=== PATIENT | female | born 1935 | race Caucasian/White ===

== ENCOUNTER 2019-06-27 12:49 | Emergency (ER) | payer MEDICARE ==
[~2019-06-27] VITALS: Ht 177.8 cm; Wt 68.2 kg
--- NOTE | 2019-06-27 14:46 | PHYS DOC ---
Past Medical History Past Medical History: Hypertension, Kidney Stone, PA, Other Additional Past Medical Histor: KIDNEY DISEASE Past Surgical History: , Other Additional Past Surgical Histo: 'SURGERY FOR KIDNEY STONE',HERNIA Alcohol Use: None Adult General Chief Complaint Chief Complaint: HEADACHE HPI HPI Patient is a 84 year old female who presents with states Thursday and heaviness pain that comes and goes up the back of her skull and shoots to the right ear. States it feels like electrical shock. She rates her pain a 10 out of 10 when the pain hits. Review of Systems Review of Systems Neurologic: headache, denies focal weakness or sensory changes [] All other systems were reviewed and found to be within normal limits, except as documented in this note. Allergies Allergies Allergies Uncoded Allergies Type Severity Reaction Last Updated Verified TPA Adverse Reaction Severe 06/27/19 Physical Exam Physical Exam Constitutional: Well developed, well nourished, no acute distress, non-toxic appearance. [] HENT: Normocephalic, atraumatic, bilateral external ears normal, oropharynx moist, no oral exudates, nose normal. [] Eyes: PERRLA, EOMI, conjunctiva normal, no discharge. [] Neck: Normal range of motion, no tenderness, supple, no stridor. [] Cardiovascular:Heart rate regular rhythm, no murmur [] Lungs & Thorax: Bilateral breath sounds clear to auscultation [] Abdomen: Bowel sounds normal, soft, no tenderness, no masses, no pulsatile masses. [] Skin: Warm, dry, no erythema, no rash. [] Back: No tenderness, no CVA tenderness. [] Extremities: No tenderness, no cyanosis, no clubbing, ROM intact, no edema. [] Neurologic: Alert and oriented X 3, normal motor function, normal sensory function, no focal deficits noted. [] Psychologic: Affect normal, judgement normal, mood normal. Normal physical exam[] Current Patient Data Vital Signs Vital Signs Date Time Temp Pulse Resp B/P (MAP) Pulse Ox O2 Delivery O2 Flow Rate FiO2 06/27/19 13:10 98.0 68 17 172/94 (120) 98 Room Air 98.0 EKG EKG [] Radiology/Procedures Radiology/Procedures [] Impressions: [facility] [address] [place] [address] IMAGING REPORT Signed PATIENT: MAGEN SPENCE ACCOUNT: [id number] : 1935 LOCATION: ER AGE: 84 SEX: F EXAM STATUS: REG ER ORD. PHYSICIAN: BRISEIDA BASS APRN REASON: BACK OF HEAD, NECK PAIN SINCE THURSDAY, FREQUENT FALLS PROCEDURE: CT HEAD AND CERVICAL SPINE WO STUDY: CT head and cervical spine without contrast INDICATION: Frequent falls. Back of head and neck pain. COMPARISON: None. TECHNIQUE: Axial CT imaging through the head and cervical spine without the use of intravenous contrast. Sagittal and coronal reformats were obtained. One or more of the following individualized dose reduction techniques were utilized for this examination: 1. Automated exposure control 2. Adjustment of the mA and/or kV according to patient size 3. Use of iterative reconstruction technique. FINDINGS: CT head: No acute intracranial hemorrhage. No mass effect, midline shift or hydrocephalus. No CT evidence for an acute cortical infarction. Parenchymal volume loss. Intracranial atherosclerotic calcifications. Intact calvarium. Mild sphenoid sinus mucosal thickening/frothy secretions. Unremarkable mastoid air cells. CT cervical spine: Osteopenia. No acute fracture or traumatic malalignment. Grade 1 anterolisthesis of C5 on C6. No advanced disc space collapse. Multilevel and multifactorial degenerative changes without bony central canal encroachment. No severe osseous encroachment on the neural foramina. Dystrophic mineralization dorsal to the dens and degenerative remodeling at the atlantodental interface. Right more so than left carotid bulb and cervical internal carotid artery atherosclerotic calcifications. No abnormality seen at the lung apices. No prevertebral edema. IMPRESSION: CT head: 1. No acute intracranial abnormality by CT. 2. Senescent changes of the brain. CT cervical spine: 1. No acute fracture or traumatic malalignment noting the presence of osteopenia. 2. Multifactorial degenerative changes without severe bony central canal or neural foraminal encroachment. 3. Right more so than left carotid atherosclerotic calcifications. Electronically signed by: RODRIGUEZ YEH MD (06/27/2019 2:50 PM) [facility] DICTATED and SIGNED BY: RODRIGUEZ YEH MD DATE: 06/27/19 0145 Course & Med Decision Making Course & Med Decision Making Alert and oriented. Speaks in full clear sentences. Bilateral tympanic is white. Denies fever, nausea, vomiting, numbness and tingling, weakness, fever, neck pain, chest pain, shortness of air, dizziness, headache, visual changes, abdominal pain. Ambulatory with steady gait. Skin pink warm and dry. Vital signs within normal limits. Patient moves all extremities equally with equal strength. Answers all questions appropriately. PERRLA. CT scan shows no acute findings. I have spoken to Dr Mobley about this patient. She states to just give her pain medications. Dragon Disclaimer Dragon Disclaimer This electronic medical record was generated, in whole or in part, using a voice recognition dictation system. NIHSS Stroke Scale NIH Stroke Scale: NIH Stroke Scale Response (Comments) Value Level of Consciousness: 0 Alert/Responsive 0 LOC Questions: 0 Answers both correctly 0 LOC Commands: 0 Performs both tasks 0 Best Gaze: 0 Normal 0 Visual: 0 No visual loss 0 Facial Palsy: 0 Normal, symmetrical 0 Motor - Left Arm 0 No drift 0 Motor - Right Arm 0 No drift 0 Motor - Left Leg 0 No drift 0 Motor: Right Leg 0 No drift 0 Limb Ataxia: 0 Absent 0 Sensory: 0 No loss 0 Best Language: 0 Normal 0 Dysathria: 0 Normal 0 Extinction and Inattention: 0 Normal 0 Total 0 Departure Departure Impression: Primary Impression: Headache Disposition: 01 HOME, SELF-CARE Condition: STABLE Referrals: DIXON ATKINS (PCP) Patient Instructions: General Headache Without Cause Additional Instructions: Follow up with your primary care provider. Take medications as prescribed. Scripts Hydrocodone/Apap 5-325 (NORCO 5-325 TABLET) 1 Each Tablet 1 TAB PO PRN Q6HRS PRN for PAIN, #10 TAB 0 Refills Prov: BRISEIDA BASS APRN 06/27/19 Problem Qualifiers Primary Impression: Headache Headache type: unspecified Headache chronicity pattern: acute headache Intractability: not intractable Qualified Codes: R51 - Headache BRISEIDA BASS APRN Jun 27, 2019 14:46
--- NOTE | 2019-06-27 14:53 | RAD ---
STUDY: CT head and cervical spine without contrast INDICATION: Frequent falls. Back of head and neck pain. COMPARISON: None. TECHNIQUE: Axial CT imaging through the head and cervical spine without the use of intravenous contrast. Sagittal and coronal reformats were obtained. One or more of the following individualized dose reduction techniques were utilized for this examination: 1. Automated exposure control 2. Adjustment of the mA and/or kV according to patient size 3. Use of iterative reconstruction technique. FINDINGS: CT head: No acute intracranial hemorrhage. No mass effect, midline shift or hydrocephalus. No CT evidence for an acute cortical infarction. Parenchymal volume loss. Intracranial atherosclerotic calcifications. Intact calvarium. Mild sphenoid sinus mucosal thickening/frothy secretions. Unremarkable mastoid air cells. CT cervical spine: Osteopenia. No acute fracture or traumatic malalignment. Grade 1 anterolisthesis of C5 on C6. No advanced disc space collapse. Multilevel and multifactorial degenerative changes without bony central canal encroachment. No severe osseous encroachment on the neural foramina. Dystrophic mineralization dorsal to the dens and degenerative remodeling at the atlantodental interface. Right more so than left carotid bulb and cervical internal carotid artery atherosclerotic calcifications. No abnormality seen at the lung apices. No prevertebral edema. IMPRESSION: CT head: 1. No acute intracranial abnormality by CT. 2. Senescent changes of the brain. CT cervical spine: 1. No acute fracture or traumatic malalignment noting the presence of osteopenia. 2. Multifactorial degenerative changes without severe bony central canal or neural foraminal encroachment. 3. Right more so than left carotid atherosclerotic calcifications. Electronically signed by: RODRIGUEZ YEH MD (06/27/2019 2:50 PM) [id number]
[2019-06-27] MEDS ORDERED: HYDR-3164 PO (15:35)
[2019-06-27 16:00] VITALS: BP 160/90
== END 2019-06-27 16:00 | disposition home or self-care (01) ==
LOC: ER 12:49
DX: R51 Headache (principal); I10 Essential (primary) hypertension; I25.2 Old myocardial infarction; Z87.442 Personal history of urinary calculi; Z87.898 Personal history of other specified conditions; Z98.890 Other specified postprocedural states
CPT/HCPCS: 70450; 72125; 99284